=== PATIENT | male | born 1960 | race Caucasian/White ===

== ENCOUNTER 2024-05-11 08:47 | Inpatient (IN) ==
[2024-05-11 09:37] LABS: ABS Eosinophils 1.1 10^3/uL (0.0-0.5); ABS Lymphocytes 1.1 10^3/uL (1.0-4.8); ABS Monocytes 0.7 10^3/uL (0.0-1.1); ABS Neutrophils 7.9 10^3/uL (1.5-7.6); ABS Nucleated RBC 0.01 10^3/ul; Eosinophil % 9.8 %; Hematocrit 40.2 % (38-53); Hemoglobin 13.8 g/dL (13.2-16.3); Lymphocyte % 10.4 %; Mean Corpuscular Hgb Conc 34.4 g/dL (31-36); Mean Corpuscular Volume 93.1 fL (80-97); Nucleated Red Blood Cells % 0.1 %/100WBC (0.0-0.8); Platelet Count 180 10^3/uL (150-450); Red Blood Count 4.31 10^6/uL (4.06-5.63); Red Cell Distribution Width 14.2 % (12-17); White Blood Count 10.8 10^3/uL (3.6-10.2)
[2024-05-11 10:02] LABS: High Sens Troponin Baseline 82 pg/mL (<20)
[2024-05-11 10:25] LABS: ALT 19 U/L (7-52); Albumin 3.7 g/dL (3.2-5.2); Albumin/Globulin Ratio 1.9 (1-3); Alkaline Phosphatase 99 U/L (35-149); Anion Gap 10 mmol/L (2-16); Blood Urea Nitrogen 21 mg/dL (6-24); CO2 Carbon Dioxide 25 mmol/L (22-32); Calcium 8.9 mg/dL (8.6-10.3); Chloride 102 mmol/L (101-111); Creatinine, Serum 1.43 mg/dL (0.67-1.17); Glucose 208 mg/dL (70-100); Sodium 137 mmol/L (135-145); Total Bilirubin 0.5 mg/dL (0.2-1.0); Total Protein 5.7 g/dL (6.4-8.9); eGFR CKD-EPI 54.4 (>60)
[2024-05-11] MEDS: Morphine 4 MG/ML VIAL (1 ml) IV ONE (10:31)
[2024-05-11 11:00] LABS: High Sensitivity Troponin 1 Hr 73 pg/mL (<20)
[2024-05-11 13:12] LABS: High Sensitivity Troponin 3 Hr 99 pg/mL (<20)
[2024-05-11 13:29] LABS: Potassium Redraw 4.4 mmol/L (3.5-5.0)
[2024-05-11] MEDS ORDERED: Iodixanol 320 (CONTRAST) 100 ML SDV IV ONE (15:53)
[2024-05-11] MEDS: Lactated Ringers 1000 ml BAG 1,000 ML IV ONE (16:00)
[2024-05-11 16:48] LABS: High Sensitivity Troponin 1 Hr 165 pg/mL (<20)
[2024-05-11] MEDS: Nitroglycerin 0.2 mg/hr PATCH (5 mg) TRANSDERM ONE (17:10)
[2024-05-11] MEDS: Iodixanol 320 (CONTRAST) 100 ML SDV IV ONE (18:21)
[2024-05-11] MEDS ORDERED: HYDROcodone/Acetamin 10/325 TAB (NF) PO PRN (19:08)
[2024-05-11] MEDS ORDERED: NF: Albuterol/Ipratropium RESP(NF) MDI (Combivent Respimat) INH PRN (19:08)
[2024-05-11] MEDS: ICOSAPENT ETHYL 1 GM CAPSULE (NF) PO SCH (22:02)
[2024-05-11] MEDS ORDERED: Dextrose 50% Syringe 50 ml 25 GM/50 ML SYRINGE IV PUSH PRN (22:07)
[2024-05-11] MEDS: Lactated Ringers 1000 ml BAG 1,000 ML IV SCH (22:43)
[2024-05-11] MEDS: Insulin GLARGINE 100 un/ml 10 ml VIAL SUBCUT SCH (22:55)
[2024-05-12 00:23] LABS: High Sensitivity Troponin 1 Hr 270 pg/mL (<20)
[2024-05-12] MEDS: Enoxaparin 40 MG/0.4 ML SYR SUBCUT SCH (01:12)
[2024-05-12 01:20] LABS: ABS Eosinophils 1.3 10^3/uL (0.0-0.5); ABS Lymphocytes 1.3 10^3/uL (1.0-4.8); ABS Monocytes 0.7 10^3/uL (0.0-1.1); Eosinophil % 12.8 %; Hematocrit 38.3 % (38-53); Hemoglobin 13.1 g/dL (13.2-16.3); Lymphocyte % 12.7 %; Mean Corpuscular Hemoglobin 31.7 pg (27-33); Mean Corpuscular Hgb Conc 34.1 g/dL (31-36); Mean Corpuscular Volume 92.9 fL (80-97); Platelet Count 185 10^3/uL (150-450); Red Blood Count 4.12 10^6/uL (4.06-5.63); Red Cell Distribution Width 14.3 % (12-17); White Blood Count 10.4 10^3/uL (3.6-10.2)
[2024-05-12] MEDS: Heparin DRIP 25,000 UNITS BAG 25,000 UNITS/250 ML BAG IV SCH (01:32)
[2024-05-12] MEDS: Heparin 5000 UNITS/ML 1 mL VIAL IV SCH (01:32)
[2024-05-12 01:43] LABS: Creatinine, Serum 1.5 mg/dL (0.67-1.17); eGFR CKD-EPI 51.3 (>60)
[2024-05-12] MEDS ORDERED: Albuterol/Ipratropium NEB.SOL (2.5/0.5 MG) 3 ML NEB.SOLN INH PRN (07:22)
[2024-05-12 07:51] LABS: Anion Gap 10 mmol/L (2-16); Blood Urea Nitrogen 19 mg/dL (6-24); CO2 Carbon Dioxide 26 mmol/L (22-32); Calcium 8.7 mg/dL (8.6-10.3); Chloride 104 mmol/L (101-111); Creatinine, Serum 1.29 mg/dL (0.67-1.17); Glucose 87 mg/dL (70-100); Sodium 140 mmol/L (135-145); eGFR CKD-EPI 61.5 (>60)
[2024-05-12] MEDS: Sulfur Hexaflouride MICROSPHR 25 MG VIAL IV PRN (09:18)
[2024-05-12 11:06] LABS: High Sensitivity Troponin 1 Hr 298 pg/mL (<20)
[2024-05-12] MEDS: Nitroglycerin 0.2 mg/hr PATCH (5 mg) TRANSDERM ONE (12:31)
[2024-05-12] MEDS: CMC:OMEGA-3 FATTY ACID 1000 mg(NF) PO SCH ×2 (12:32→14:26)
[2024-05-12] MEDS: Nitroglycerin 0.2 mg/hr PATCH (5 mg) TRANSDERM SCH (21:33)
[2024-05-13 00:09] LABS: High Sensitivity Troponin 3 Hr 657 pg/mL (<20)
[2024-05-13 05:28] LABS: ABS Eosinophils 0.6 10^3/uL (0.0-0.5); ABS Lymphocytes 1.2 10^3/uL (1.0-4.8); ABS Monocytes 0.6 10^3/uL (0.0-1.1); Eosinophil % 8.3 %; Hematocrit 36.6 % (38-53); Hemoglobin 12.2 g/dL (13.2-16.3); Lymphocyte % 15.8 %; Mean Corpuscular Hemoglobin 31.2 pg (27-33); Mean Corpuscular Hgb Conc 33.4 g/dL (31-36); Mean Corpuscular Volume 93.3 fL (80-97); Mean Platelet Volume 6.2 fL (7.5-11.2); Platelet Count 156 10^3/uL (150-450); Red Blood Count 3.92 10^6/uL (4.06-5.63); Red Cell Distribution Width 14.4 % (12-17); White Blood Count 7.4 10^3/uL (3.6-10.2)
[2024-05-13 05:36] LABS: Activated Partial Thrombo Time 49.9 seconds (26.0-38.0)
[2024-05-13 05:57] LABS: Calcium 8.6 mg/dL (8.6-10.3); Creatinine, Serum 1.2 mg/dL (0.67-1.17); Magnesium 1.8 mg/dL (1.9-2.7); Phosphorus 3.5 mg/dL (2.5-5.0); Potassium 3.9 mmol/L (3.5-5.0); eGFR CKD-EPI 67.1 (>60)
[2024-05-13] MEDS: Magnesium Sulfate 2 gm BAG 2 GM/50 ML BAG IVPB ONE (08:57)
[2024-05-13 09:27] LABS: INR 1.09 (0.85-1.14)
[2024-05-13] MEDS ORDERED: niCARdipine 0.1MG/ML IVPREMIX 20 MG/200 ML BAG IV ONE (10:32)
[2024-05-13] MEDS ORDERED: Heparin 1,000 UNIT/ML 10 ml (10,000 UNITS) CATHLAB/DIALYSIS ONE ×2 (10:32→11:27)
[2024-05-13] MEDS ORDERED: Lidocaine 1% MPF 5 ML VIAL ONE (10:32)
[2024-05-13] MEDS ORDERED: fentaNYL 100 mcg/2 ml 50 MCG/ML VIAL ONE ×2 (10:32→11:49)
[2024-05-13] MEDS ORDERED: Midazolam 5 mg/5 ml VIAL 1 mg/ml 5 ml VIAL (5 mg) ONE (10:32)
[2024-05-13] MEDS ORDERED: nitroGLYCERIN DRIP 25,000 MCG/250 ML BTL ONE (10:33)
[2024-05-13] MEDS ORDERED: Iohexol 350 (CONTRAST) 200 ML MDV IV ONE (10:33)
[2024-05-13] MEDS ORDERED: Heparin 2 UNITS/ML 1000 mls 2,000 ML IV ONE (10:33)
[2024-05-13] MEDS ORDERED: Prasugrel 10 mg TAB (NF) ONE (11:27)
[2024-05-13] MEDS: Ondansetron 4 mg VIAL 2 MG/ML 2 ml VIAL IV PRN (13:41)
[2024-05-14] MEDS: Calcium Carb (TUMS) 500 mg CHEW TAB PO ONE (01:13)
[2024-05-14] MEDS: Calcium Carb (TUMS) 500 mg CHEW TAB ONE (01:14)
[2024-05-14 04:35] LABS: Albumin 3.4 g/dL (3.2-5.2); Albumin/Globulin Ratio 1.7 (1-3); Calcium 8.6 mg/dL (8.6-10.3); Creatinine, Serum 1.06 mg/dL (0.67-1.17); Potassium 4.1 mmol/L (3.5-5.0); Total Bilirubin 0.4 mg/dL (0.2-1.0); Total Protein 5.4 g/dL (6.4-8.9); eGFR CKD-EPI 77.9 (>60)
[2024-05-14 04:46] LABS: ABS Eosinophils 0.4 10^3/uL (0.0-0.5); ABS Lymphocytes 0.9 10^3/uL (1.0-4.8); ABS Monocytes 0.9 10^3/uL (0.0-1.1); ABS Neutrophils 6.5 10^3/uL (1.5-7.6); ABS Nucleated RBC 0.01 10^3/ul; Eosinophil % 4.4 %; Hematocrit 36.5 % (38-53); Hemoglobin 12.3 g/dL (13.2-16.3); Lymphocyte % 10.6 %; Mean Corpuscular Hemoglobin 31.5 pg (27-33); Mean Corpuscular Hgb Conc 33.8 g/dL (31-36); Mean Corpuscular Volume 93.1 fL (80-97); Mean Platelet Volume 5.9 fL (7.5-11.2); Nucleated Red Blood Cells % 0.1 %/100WBC (0.0-0.8); Platelet Count 174 10^3/uL (150-450); Red Blood Count 3.92 10^6/uL (4.06-5.63); Red Cell Distribution Width 14.3 % (12-17); White Blood Count 8.7 10^3/uL (3.6-10.2)
[2024-05-14 06:26] LABS: Magnesium 2.1 mg/dL (1.9-2.7)
[2024-05-14] MEDS: Prasugrel 10 mg TAB (NF) PO SCH (09:21)
[2024-05-14 11:00] VITALS: BP 157/78
== END 2024-05-14 11:50 | disposition home or self-care (01) | DRG 322 ==
LOC: EDHOLD 08:47 → ED 08:47 → SUATTDRO 18:12 → MEDTELE 05-12 10:50 → SUATTDRO 05-12 14:53 → MEDTELE 05-12 15:59 → ICU 05-13 12:42
PROVIDERS: ADMIT Internal Medicine; ATTEND Internal Medicine Pulmonary Disease